=== PATIENT | male | born 1970 | race Two or more races ===

== ENCOUNTER 2017-08-10 16:47 | Inpatient (IN) | payer SELFPAY ==
[~2017-08-10] VITALS: Ht 172.7 cm; Wt 96.5 kg
[2017-08-10] MEDS ORDERED: SODIUM CHLORIDE 0.9% 1,000 ML IV ONE (17:15)
[2017-08-10] MEDS ORDERED: MORPHINE SULFATE 4 MG/ML SYR/VIAL IV ONE ×2 (17:15→20:30)
[2017-08-10] MEDS ORDERED: ONDANSETRON HCL 4 MG/2 ML VIAL IV ONE ×2 (17:15→20:30)
[2017-08-10 18:14] LABS: Basophils # (auto) 0.1 uL; Basophils % (auto) 0.4 % (0.0-2.0); Eosinophils # (auto) 0.1 uL; Eosinophils % (auto) 0.6 % (0.0-7.0); Hematocrit 51.3 % (41.0-53.0); Hemoglobin 16.8 g/dL (13.5-17.5); Lymphocytes # (auto) 0.6 uL; Mean Corpuscular Hemoglobin 28.8 pg (28.0-32.0); Mean Corpuscular Hgb Conc. 32.6 g/dL (32.0-36.0); Mean Corpuscular Volume 88.2 fL (80.0-100.0); Monocytes # (auto) 0.7 uL; Monocytes % (auto) 5.5 % (0.0-12.0); Neutrophils # (auto) 11.3 uL; Neutrophils % (auto) 88.5 % (37.0-80.0); Nucleated Red Blood Cells % 0.1 %; Platelet Count (auto) 248 10^3/uL (140-450); Red Blood Cells 5.82 10^6/uL (4.5-5.90); Red Cell Distribution Width 13.7 % (11.8-14.3); White Blood Cell 12.8 10^3/uL (4.4-10.8)
[2017-08-10 18:23] LABS: INR 1.01 (0.9-1.15); Partial Thromboplastin Time 27.6 sec (22.64-33.71)
[2017-08-10 18:29] LABS: Chloride 103 mmol/L (98-107); Potassium 3.7 mmol/L (3.5-5.1); Sodium 135 mmol/L (136-145)
[2017-08-10 18:34] LABS: Alanine Aminotransferase 342 U/L (16-61); Albumin 3.3 g/dL (3.4-5.0); Amylase 229 U/L (25-115); Anion Gap 9 (5-15); Aspartate Aminotransferase 108 U/L (15-37); BUN/Creatinine Ratio 14.8; Blood Urea Nitrogen 13 mg/dL (7-18); Calcium 8.6 mg/dL (8.5-10.1); Carbon Dioxide 23 mmol/L (21-32); GFR African American 119 mL/min; GFR Non-African American 99 mL/min; Glucose 116 mg/dL (74-106); Lipase 1475 U/L (73-393)
[2017-08-10 18:35] LABS: Alkaline Phosphatase 347 U/L (45-117); Bilirubin, Total 9.4 mg/dL (0.2-1.0); Total Protein 6.9 g/dL (6.4-8.2)
[2017-08-10 19:12] LABS: Acetaminophen < 2.0 ug/mL (10-30)
[2017-08-10 19:26] LABS: Salicylate < 0.2 mg/dL (2.8-20.0)
[2017-08-10 22:00] VITALS: BP 164/95
[2017-08-10] MEDS ORDERED: metroNIDAZOLE 500MG/100ML 100 ML IV ONE (22:00)
[2017-08-10] MEDS ORDERED: cefTRIAXone 1GM/10ml IVPUSH 10 ML IV ONE (22:00)
[2017-08-10] MEDS ORDERED: ACETAMINOPHEN 500 MG TAB PO PRN (22:00)
[2017-08-10 22:45] VITALS: BP 141/90
[2017-08-11] MEDS: SODIUM CHLORIDE 0.9% 1,000 ML IV SCH ×2 (00:12→06:00)
[2017-08-11 01:43] VITALS: BP 141/90
[2017-08-11] MEDS: MORPHINE SULFATE 4 MG/ML SYR/VIAL IV PRN ×4 (02:10→19:53)
[2017-08-11] MEDS ORDERED: IBUPROFEN 400 MG TAB PO PRN (03:00)
[2017-08-11 05:02] VITALS: BP 147/93
[2017-08-11 05:39] LABS: Basophils # (auto) 0 uL; Basophils % (auto) 0.3 % (0.0-2.0); Eosinophils # (auto) 0.1 uL; Eosinophils % (auto) 1.3 % (0.0-7.0); Hemoglobin 16.6 g/dL (13.5-17.5); Lymphocytes # (auto) 0.9 uL; Lymphocytes % (auto) 7.9 % (10.0-50.0); Mean Corpuscular Hgb Conc. 33.1 g/dL (32.0-36.0); Mean Corpuscular Volume 87.6 fL (80.0-100.0); Monocytes # (auto) 0.8 uL; Neutrophils # (auto) 9.1 uL; Neutrophils % (auto) 83.5 % (37.0-80.0); Platelet Count (auto) 229 10^3/uL (140-450); Red Blood Cells 5.71 10^6/uL (4.5-5.90); Red Cell Distribution Width 13.9 % (11.8-14.3); White Blood Cell 10.9 10^3/uL (4.4-10.8)
[2017-08-11] MEDS: metroNIDAZOLE 500MG/100ML 100 ML IV SCH ×3 (06:09→21:54)
[2017-08-11 06:12] LABS: Albumin 3.2 g/dL (3.4-5.0); Bilirubin, Total 9.5 mg/dL (0.2-1.0); Calcium 8.3 mg/dL (8.5-10.1); Potassium 3.5 mmol/L (3.5-5.1)
[2017-08-11 07:46] VITALS: BP 141/84
[2017-08-11 12:00] VITALS: BP 147/74
[2017-08-11] MEDS: cefTRIAXone 1GM/10ml IVPUSH 10 ML IV SCH (12:34)
[2017-08-11] MEDS: LACTATED RINGER'S 1,000 ML IV SCH ×2 (12:35→18:25)
[2017-08-11 16:50] VITALS: BP 137/99
[2017-08-11] MEDS: HYDROcodone-ACET 5/325MG TAB PO PRN (21:54)
[2017-08-11 22:00] VITALS: BP 162/101
[2017-08-11] MEDS ORDERED: TEMAZEPAM 15 MG CAP PO PRN (23:30)
[2017-08-12 00:14] LABS: Urine Bacteria FEW /hpf (None Seen); Urine Blood TRACE /uL (Negative); Urine Mucus FEW (None Seen); Urine Specific Gravity 1.023 (1.001-1.035); Urine WBC 2 /hpf (0 - 3)
[2017-08-12 00:18] LABS: Alcohol, Urine < 3.0 mg/dL (0-5); Amphetamine Screen, Urine POSITIVE (NEGATIVE); Barbiturate Scree,Urine NEGATIVE (NEGATIVE); Benzodiazephine Screen, Urine NEGATIVE (NEGATIVE); Cannabinoid Screen, Urine POSITIVE (NEGATIVE); Cocaine Screen, Urine NEGATIVE (NEGATIVE); Opiate Scree,Urine POSITIVE (NEGATIVE); Phencyclidine Screen, Urine NEGATIVE (NEGATIVE)
[2017-08-12] MEDS: LACTATED RINGER'S 1,000 ML IV SCH ×4 (01:38→20:56)
[2017-08-12] MEDS: MORPHINE SULFATE 4 MG/ML SYR/VIAL IV PRN ×4 (01:38→20:56)
[2017-08-12] MEDS: HYDROcodone-ACET 5/325MG TAB PO PRN ×2 (03:52→23:36)
[2017-08-12 05:00] VITALS: BP 153/103
[2017-08-12] MEDS: metroNIDAZOLE 500MG/100ML 100 ML IV SCH ×3 (05:28→20:56)
[2017-08-12 09:00] VITALS: BP 154/87
[2017-08-12] MEDS: cefTRIAXone 1GM/10ml IVPUSH 10 ML IV SCH (09:29)
[2017-08-12 12:00] VITALS: BP 138/88
[2017-08-12 16:00] VITALS: BP 146/97
[2017-08-13] MEDS: LACTATED RINGER'S 1,000 ML IV SCH ×4 (03:07→23:14)
[2017-08-13] MEDS: MORPHINE SULFATE 4 MG/ML SYR/VIAL IV PRN ×3 (04:23→20:19)
[2017-08-13 05:00] VITALS: BP 134/88
[2017-08-13] MEDS: metroNIDAZOLE 500MG/100ML 100 ML IV SCH ×3 (05:12→23:14)
[2017-08-13] MEDS: HYDROcodone-ACET 5/325MG TAB PO PRN ×2 (06:41→23:19)
[2017-08-13 08:00] VITALS: BP 138/95
[2017-08-13] MEDS: cefTRIAXone 1GM/10ml IVPUSH 10 ML IV SCH (11:13)
[2017-08-13 12:00] VITALS: BP 134/89
[2017-08-13 15:41] LABS: BUN/Creatinine Ratio 22.2; Bilirubin, Direct 2.4 mg/dL (0-0.2); Bilirubin, Total 3.3 mg/dL (0.2-1.0); Calcium 8.5 mg/dL (8.5-10.1); Potassium 3.3 mmol/L (3.5-5.1); Total Protein 7.7 g/dL (6.4-8.2)
[2017-08-13 17:00] VITALS: BP 158/103
[2017-08-13] MEDS: ONDANSETRON HCL 4 MG/2 ML VIAL IV PRN (20:08)
[2017-08-13 22:00] VITALS: BP 148/102
[2017-08-14 05:20] VITALS: BP 140/99
[2017-08-14] MEDS: metroNIDAZOLE 500MG/100ML 100 ML IV SCH ×4 (05:59→21:31)
[2017-08-14] MEDS: LACTATED RINGER'S 1,000 ML IV SCH ×3 (06:02→19:45)
[2017-08-14 07:00] LABS: Basophils # (auto) 0.1 uL; Basophils % (auto) 0.6 % (0.0-2.0); Eosinophils # (auto) 0.2 uL; Eosinophils % (auto) 2.1 % (0.0-7.0); Hematocrit 49.2 % (41.0-53.0); Hemoglobin 16.6 g/dL (13.5-17.5); Lymphocytes # (auto) 1.1 uL; Lymphocytes % (auto) 11.7 % (10.0-50.0); Mean Corpuscular Hemoglobin 29.7 pg (28.0-32.0); Mean Corpuscular Hgb Conc. 33.7 g/dL (32.0-36.0); Mean Corpuscular Volume 88.4 fL (80.0-100.0); Monocytes # (auto) 0.7 uL; Monocytes % (auto) 7.4 % (0.0-12.0); Neutrophils # (auto) 7.5 uL; Neutrophils % (auto) 78.2 % (37.0-80.0); Platelet Count (auto) 297 10^3/uL (140-450); Red Blood Cells 5.57 10^6/uL (4.5-5.90); Red Cell Distribution Width 13.8 % (11.8-14.3); White Blood Cell 9.6 10^3/uL (4.4-10.8)
[2017-08-14 07:04] LABS: INR 0.95 (0.9-1.15); Prothrombin Time 10.3 sec (9.37-12.3)
[2017-08-14 07:23] LABS: Potassium 3.2 mmol/L (3.5-5.1)
[2017-08-14 07:24] LABS: BUN/Creatinine Ratio 21.3
[2017-08-14] MEDS ORDERED: IOHEXOL 300 MG/ML 100ML BOTTLE IJ ONE (07:34)
[2017-08-14] MEDS ORDERED: SUCCINYLCHOLINE CHLORIDE 20 MG/ML 10ML VIAL IV ONE (09:09)
[2017-08-14] MEDS ORDERED: fentaNYL CITRATE 100 MCG/2 ML VL ONE (09:14)
[2017-08-14] MEDS ORDERED: MIDAZOLAM HCL 1MG/1ML-2 ML VIAL ONE (09:14)
[2017-08-14] MEDS ORDERED: MEPERIDINE HCL (50 MG/ML) 1 ML VIAL ONE (09:14)
[2017-08-14 09:19] VITALS: BP 145/84
[2017-08-14] MEDS ORDERED: METOCLOPRAMIDE HCL 5MG/ml INJ 2ml VIAL ONE (09:40)
[2017-08-14] MEDS ORDERED: DEXAMETHASONE SOD PHOS 10MG/1ML VIAL INJ ONE (09:40)
[2017-08-14] MEDS ORDERED: PROPOFOL 10 MG/ML 20 ML IV ONE (09:40)
[2017-08-14] MEDS ORDERED: GLYCOPYRROLATE 0.2 MG/ML 1ML VIAL ONE (10:07)
[2017-08-14] MEDS ORDERED: NEOSTIGMINE 1 MG/ML INJ (10mg/10ML VIAL) ONE (10:07)
[2017-08-14] MEDS ORDERED: KETOROLAC TROMETH 30 MG/ML 1ML VIAL IV ONE (10:30)
[2017-08-14] MEDS ORDERED: ONDANSETRON HCL 4 MG/2 ML VIAL IV ONE (10:30)
[2017-08-14] MEDS ORDERED: LABETALOL HCL 5 MG/ML 4ML SYRINGE IV PRN (10:30)
[2017-08-14] MEDS ORDERED: MORPHINE SULFATE 4 MG/ML SYR/VIAL IV PRN (10:30)
[2017-08-14] MEDS ORDERED: ePHEDrine SULFATE 50 MG/ML AMP IV PRN (10:30)
[2017-08-14] MEDS ORDERED: MIDAZOLAM HCL 1MG/1ML-2 ML VIAL IV PRN (10:30)
[2017-08-14] MEDS ORDERED: MORPHINE SULFATE 4 MG/ML SYR/VIAL IV ONE (12:00)
[2017-08-14] MEDS: cefTRIAXone 1GM/10ml IVPUSH 10 ML IV SCH (12:56)
[2017-08-14 13:06] VITALS: BP 128/86
[2017-08-14 16:48] VITALS: BP 128/95
[2017-08-14] MEDS: HYDROcodone-ACET 5/325MG TAB PO PRN (19:23)
[2017-08-14] MEDS: ONDANSETRON HCL 4 MG/2 ML VIAL IV PRN (20:42)
[2017-08-14 21:53] VITALS: BP 129/76
[2017-08-15] MEDS: LACTATED RINGER'S 1,000 ML IV SCH (02:25)
[2017-08-15 05:00] VITALS: BP 127/84
[2017-08-15] MEDS: metroNIDAZOLE 500MG/100ML 100 ML IV SCH (06:06)
[2017-08-15] MEDS: cefTRIAXone 1GM/10ml IVPUSH 10 ML IV SCH (08:50)
[2017-08-15 08:58] VITALS: BP 135/98
[2017-08-15 11:28] VITALS: BP 124/78
== END 2017-08-15 12:40 | disposition home or self-care (01) | DRG 439 ==
LOC: EDBD 16:47 → ER 16:47 → TELE 16:48 → TELE-CENTR 22:40
PROVIDERS: ADMIT Nurse Practitioner Family; ATTEND Family Medicine
PROC: BF131ZZ Fluoroscopy of Gallbladder and Bile Ducts using Low Osmolar Contrast (ICD-10-PCS; 2017-08-14)
PROC: 0F778ZZ Dilation of Common Hepatic Duct, Via Natural or Artificial Opening Endoscopic (ICD-10-PCS; principal; 2017-08-14 09:15)
DX: K85.10 Biliary acute pancreatitis without necrosis or infection (principal); K81.0 Acute cholecystitis; E87.1 Hypo-osmolality and hyponatremia; K83.8 Other specified diseases of biliary tract; F15.10 Other stimulant abuse, uncomplicated; R74.8 Abnormal levels of other serum enzymes; R79.89 Other specified abnormal findings of blood chemistry; F17.210 Nicotine dependence, cigarettes, uncomplicated; Z82.49 Family history of ischemic heart disease and other diseases of the circulatory system; Z90.49 Acquired absence of other specified parts of digestive tract
CPT/HCPCS: 36415; 74018; 74176; 74181; 76000; 80048; 80053; 80307; 80329; 81001; 82150; 82248; 83605; 83690; 84484; 85025; 85610; 85730; 87040; 87086; 93005; 96361; 96374; 96375; 96376; J0330; J1100; J2250; J2405; J2704; J3490